=== PATIENT | female | born 1985 | race Caucasian/White ===

== ENCOUNTER 2018-10-12 05:59 | Emergency (ER) | payer BC, OTHER ==
--- NOTE | 2018-10-12 06:48 | EDM.PDOC ---
ED HPI GENERAL MEDICAL PROBLEM - General Chief Complaint: Skin Complaint Stated Complaint: STAPH INFECTION Time Seen by Provider: 10/12/18 06:41 - History of Present Illness INITIAL COMMENTS - FREE TEXT/NARRATIVE: HISTORY AND PHYSICAL: History of present illness: Patient is a 33-year-old white female who presents with concern of vomiting diarrhea possible staph infection of her face she states him the symptoms off- and-on for the last week or so. She is concerned of possible dehydration no reported fever chills chest pain or shortness of breath Review of systems: As per history of present illness and below otherwise all systems reviewed and negative. Past medical history: As per history of present illness and as reviewed below otherwise noncontributory. Surgical history: As per history of present illness and as reviewed below otherwise noncontributory. Social history: No reported history of drug or alcohol abuse. Family history: As per history of present illness and as reviewed below otherwise noncontributory. Physical exam: HEENT: Patient is a small area of excoriation of her right face with small swelling noted there is no significant erythema, normocephalic, pupils reactive , negative for conjunctival pallor or scleral icterus, mucous membranes moist, throat clear, neck supple, nontender, trachea midline. Lungs: Clear to auscultation, breath sounds equal bilaterally, chest nontender. Heart: S1S2, regular, negative for clicks, rubs, or JVD. Abdomen: Soft, nondistended, nontender. Negative for masses or hepatosplenomegaly. Negative for costovertebral tenderness. Pelvis: Stable nontender. Genitourinary: Deferred. Rectal: Deferred. Extremities: Atraumatic, negative for cords or calf pain. Neurovascular unremarkable. Neuro: Awake, alert, oriented. Cranial nerves II through XII unremarkable. Cerebellum unremarkable. Motor and sensory unremarkable throughout. Exam nonfocal. Diagnostics: CBC CMP UA UCG influenza screen Therapeutics: None Impression: #1 gastroenteritis #2 rule out impetigo Definitive disposition and diagnosis as appropriate pending reevaluation and review of above. Headache Pain Score (Numeric/FACES): 3 - Related Data Allergies Allergy/AdvReac Type Severity Reaction Status Date / Time No Known Allergies Allergy Verified 10/12/18 06:18 Home Meds: Home Meds Melatonin 5 mg PO BEDTIME 10/12/18 [History] hydrOXYzine HCl [hydrOXYzine] 25 mg PO ASDIRECTED 10/12/18 [History] lamoTRIgine [Lamotrigine] 150 mg PO BID 10/12/18 [History] Past Medical History Respiratory History: Reports: Asthma Other Respiratory History: sports induced asthma Musculoskeletal History: Reports: Fracture Other Musculoskeletal History: L wrist fx, R pinnky fx Neurological History: Reports: Headaches, Chronic, Migraines Psychiatric History: Reports: Anxiety Dermatologic History: Reports: Other (See Below) Other Dermatologic History: staph infection - Infectious Disease History Infectious Disease History: Reports: Chicken Pox, Human Papilloma Virus (HPV), Mononucleosis - Past Surgical History HEENT Surgical History: Reports: Oral Surgery GI Surgical History: Reports: Cholecystectomy Social & Family History - Tobacco Use Smoking Status *Q: Never Smoker - Recreational Drug Use Recreational Drug Use: Yes Recreational Drug Type: Reports: Marijuana/Hashish Recreational Drug Use Frequency: Not Used In Over 1 Month ED ROS GENERAL - Review of Systems Review Of Systems: ROS reveals no pertinent complaints other than HPI. ED EXAM, SKIN/RASH Exam: See Below (See dictation) Course - Vital Signs Last Recorded V/S: Last Vital Signs Temp 36.4 C 10/12/18 06:13 Pulse 94 10/12/18 06:13 Resp 16 10/12/18 06:13 BP 156/108 H 10/12/18 06:13 Pulse Ox 98 10/12/18 06:13 - Orders/Labs/Meds Orders: Active Orders 24 hr Category Date Time Status CBC WITH AUTO DIFF [HEME] Stat Lab 10/12/18 06:44 Ordered COMPREHENSIVE METABOLIC PN,CMP [CHEM] Stat Lab 10/12/18 06:44 Ordered CULTURE URINE [RM] Stat Lab 10/12/18 06:44 Ordered INFLUENZA A+B AG SCREEN [RM] Stat Lab 10/12/18 06:45 Ordered LIPASE [CHEM] Stat Lab 10/12/18 06:44 Ordered UA RFX ELEAZAR AND CULT IF INDIC [URIN] Stat Lab 10/12/18 06:44 Ordered UA W/MICROSCOPIC [URIN] Stat Lab 10/12/18 06:44 Ordered Departure - Departure Time of Disposition: 06:47 Disposition: Home, Self-Care 01 Condition: Good Clinical Impression: Encounter for medical screening examination, Gastroenteritis, Impetigo - Discharge Information Referrals: PCP,None [Primary Care Provider] - Additional Instructions: The following information is given to patients seen in the emergency department who are being discharged to home. This information is to outline your options for follow-up care. We provide all patients seen in our emergency department with a follow-up referral. The need for follow-up, as well as the timing and circumstances, are variable depending upon the specifics of your emergency department visit. If you don't have a primary care physician on staff, we will provide you with a referral. We always advise you to contact your personal physician following an emergency department visit to inform them of the circumstance of the visit and for follow-up with them and/or the need for any referrals to a consulting specialist. The emergency department will also refer you to a specialist when appropriate. This referral assures that you have the opportunity for followup care with a specialist. All of these measure are taken in an effort to provide you with optimal care, which includes your followup. Under all circumstances we always encourage you to contact your private physician who remains a resource for coordinating your care. When calling for followup care, please make the office aware that this follow-up is from your recent emergency room visit. If for any reason you are refused follow-up, please contact the [facility] emergency department at and asked to speak to the emergency department charge nurse. [facility] [address] [place] [id number] Bactroban Bactrim as prescribed push fluids follow-up clinic above called schedule routine appointment return as needed as discussed - My Orders Last 24 Hours: My Active Orders 10/12/18 06:44 CBC WITH AUTO DIFF [HEME] Stat COMPREHENSIVE METABOLIC PN,CMP [CHEM] Stat CULTURE URINE [RM] Stat LIPASE [CHEM] Stat UA RFX ELEAZAR AND CULT IF INDIC [URIN] Stat UA W/MICROSCOPIC [URIN] Stat 10/12/18 06:45 INFLUENZA A+B AG SCREEN [RM] Stat - Assessment/Plan Last 24 Hours: My Active Orders 10/12/18 06:44 CBC WITH AUTO DIFF [HEME] Stat COMPREHENSIVE METABOLIC PN,CMP [CHEM] Stat CULTURE URINE [RM] Stat LIPASE [CHEM] Stat UA RFX ELEAZAR AND CULT IF INDIC [URIN] Stat UA W/MICROSCOPIC [URIN] Stat 10/12/18 06:45 INFLUENZA A+B AG SCREEN [] Stat
== END 2018-10-12 07:53 | disposition home or self-care (01) ==
LOC: MW.ED 05:59
DX: K52.9 Noninfective gastroenteritis and colitis, unspecified (principal); L01.00 Impetigo, unspecified
CPT/HCPCS: 36415; 80053; 81001; 81003; 83690; 85025; 87086; 87804; 99283

== ENCOUNTER 2020-02-10 14:18 | Inpatient (IN) | payer BC ==
[2020-02-10] MEDS ORDERED: Sodium Chloride 0.9% 10 ML Syringe FLUSH PRN (16:13)
[2020-02-10] MEDS ORDERED: Sodium Chloride 0.9% 10 ML SDV IV PRN (16:13)
[2020-02-10] MEDS ORDERED: Nalbuphine 10 MG/1 ML Vial IVPUSH PRN (16:13)
[2020-02-10] MEDS ORDERED: Carboprost Tromethamine 250 MCG/1 ML Amp IM PRN (16:13)
[2020-02-10] MEDS ORDERED: Water For Irrigation,Sterile 1,000 ML Container IRR PRN (16:13)
[2020-02-10] MEDS ORDERED: Butorphanol 1 MG/ML SDV IVPUSH PRN (16:13)
[2020-02-10] MEDS ORDERED: Sodium Chloride 0.9% 2.5 ML Syringe FLUSH PRN (16:13)
[2020-02-10] MEDS ORDERED: Lidocaine 1% 50 ML MDV INJECT PRN (16:13)
[2020-02-10] MEDS ORDERED: Methylergonovine 0.2 MG/1 ML Amp IM PRN (16:13)
[2020-02-10] MEDS ORDERED: Terbutaline 1 MG/ML SDV SUBCUT PRN (16:13)
[2020-02-10] MEDS ORDERED: Misoprostol 25 MCG (1/4 of 100 MCG) Tab VAG PRN ×2 (16:13)
[2020-02-10] MEDS ORDERED: Misoprostol 200 MCG Tab PO PRN (16:13)
[2020-02-10] MEDS ORDERED: Tranexamic Acid 1,000 MG in Sodium Chloride 0.9% 100 ML IV PRN (16:13)
[2020-02-10] MEDS ORDERED: Oxytocin/0.9 % Sodium Chloride 30 UNIT/500 ML BAG IV SCH ×2 (16:15)
[2020-02-10] MEDS ORDERED: Ondansetron 4 MG/2 ML SDV IVPUSH PRN (16:26)
[2020-02-10] MEDS: Lactated Ringers 1,000 ML IV SCH (22:15)
[2020-02-10] MEDS ORDERED: fentaNYL/Ropivacaine/Ns/PF 100 ML Bag ONE (22:30)
--- NOTE | 2020-02-10 23:27 | PCM.PREANE ---
Preanesthetic Assessment - Anesthesia/Transfusion/Family Hx Anesthesia History: Prior Anesthesia Without Reaction Family History of Anesthesia Reaction: No Transfusion History: No Prior Transfusion(s) - Review of Systems General: No Symptoms Pulmonary: No Symptoms Cardiovascular: No Symptoms Gastrointestinal: No Symptoms Neurological: No Symptoms Other: Reports: None ( 40 3/7 weeks induction for post dates and failed NST , dilated to 2cm ) - Physical Assessment Height: 5 ft 7 in Weight: 69.4 kg ASA Class: 2 Mental Status: Alert & Oriented x3 Airway Class: Mallampati = 1 Dentition: Reports: Normal Dentition Thyro-Mental Finger Breadths: 3 ROM/Head Extension: Full Lungs: Clear to Auscultation, Normal Respiratory Effort Cardiovascular: Regular Rate, Regular Rhythm - Lab Values: Laboratory Last Values WBC 7.22 K/uL (4.0-11.0) 02/10/20 17:03 RBC 3.99 M/uL (4.30-5.90) L 02/10/20 17:03 Hgb 13.8 g/dL (12.0-16.0) 02/10/20 17:03 Hct 39.5 % (36.0-46.0) 02/10/20 17:03 MCV 99.0 fL (80.0-98.0) H 02/10/20 17:03 MCH 34.6 pg (27.0-32.0) H 02/10/20 17:03 MCHC 34.9 g/dL (31.0-37.0) 02/10/20 17:03 RDW Std Deviation 48.9 fl (28.0-62.0) 02/10/20 17:03 RDW Coeff of Maggie 14 % (11.0-15.0) 02/10/20 17:03 Plt Count 148 K/uL (150-400) L 02/10/20 17:03 MPV 10.00 fL (7.40-12.00) 02/10/20 17:03 Nucleated RBC % 0.0 /100WBC 02/10/20 17:03 Nucleated RBCs # 0 K/uL 02/10/20 17:03 Blood Type A POSITIVE 02/10/20 17:03 Antibody Screen NEGATIVE 02/10/20 17:03 - Allergies Allergies/Adverse Reactions: Allergies Allergy/AdvReac Type Severity Reaction Status Date / Time No Known Allergies Allergy Verified 02/10/20 14:24 - Acknowledgements Anesthesia Type Planned: Epidural Pt an Appropriate Candidate for the Planned Anesthesia: Yes Alternatives and Risks of Anesthesia Discussed w Pt/Guardian: Yes Pt/Guardian Understands and Agrees with Anesthesia Plan: Yes PreAnesthesia Questionnaire Respiratory History: Reports: Asthma Other Respiratory History: sports induced asthma [employer]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: Musculoskeletal History: Reports: Fracture Other Musculoskeletal History: L wrist fx, R pinnky fx Neurological History: Reports: Headaches, Chronic, Migraines Psychiatric History: Reports: Anxiety Dermatologic History: Reports: Other (See Below) Other Dermatologic History: staph infection - Infectious Disease History Infectious Disease History: Reports: Chicken Pox, Human Papilloma Virus (HPV), Mononucleosis - Past Surgical History HEENT Surgical History: Reports: Oral Surgery GI Surgical History: Reports: Cholecystectomy - SUBSTANCE USE Smoking Status *Q: Never Smoker Second Hand Smoke Exposure: Yes Recreational Drug Use History: No - HOME MEDS Home Medications: Home Meds Melatonin 5 mg PO BEDTIME 10/12/18 [History] hydrOXYzine HCL [hydrOXYzine] 25 mg PO ASDIRECTED 10/12/18 [History] lamoTRIgine [Lamotrigine] 150 mg PO BID 10/12/18 [History] - CURRENT (IN HOUSE) MEDS Current Meds: Current Medications Butorphanol Tartrate (Stadol) 1 mg IVPUSH Q1H PRN PRN Reason: Pain Last Admin: 02/10/20 22:36 Dose: 1 mg Carboprost Tromethamine (Hemabate Ds) 250 mcg IM ASDIRECTED PRN PRN Reason: Post Hemorrhage Tranexamic Acid 1,000 mg/ (Sodium Chloride) 110 mls @ 660 mls/hr IV ONETIME PRN PRN Reason: Bleeding Lactated Ringer's (Ringers, Lactated) 1,000 mls @ 150 mls/hr IV ASDIRECTED JAYA Last Admin: 02/10/20 22:15 Dose: 999 mls/hr Oxytocin/Sodium Chloride (Oxytocin 30 Unit/500 Ml-Ns) 30 unit in 500 mls @ 500 mls/hr IV TITRATE JAYA Oxytocin/Sodium Chloride (Oxytocin 30 Unit/500 Ml-Ns) 30 unit in 500 mls @ 2 mls/hr IV TITRATE JAYA; Protocol Lidocaine HCl (Xylocaine 1%) 50 ml INJECT ONETIME PRN PRN Reason: Laceration repair Methylergonovine Maleate (Methergine) 0.2 mg IM ASDIRECTED PRN PRN Reason: Post Hemorrhage Misoprostol (Cytotec) 200 mcg PO ONETIME PRN PRN Reason: Post Hemorrhage Misoprostol (Cytotec) 25 mcg VAG ONETIME PRN PRN Reason: Cervical Ripening Misoprostol (Cytotec) 25 mcg VAG Q4H PRN PRN Reason: Cervical Ripening Last Admin: 02/10/20 17:19 Dose: 25 mcg Nalbuphine HCl (Nubain) 10 mg IVPUSH Q1H PRN PRN Reason: Pain (severe 7-10) Ondansetron HCl (Zofran) 4 mg IVPUSH Q4H PRN PRN Reason: Nausea/Vomiting Sodium Chloride (Saline Flush) 10 ml FLUSH ASDIRECTED PRN PRN Reason: Keep Vein Open Sodium Chloride (Saline Flush) 2.5 ml FLUSH ASDIRECTED PRN PRN Reason: Keep Vein Open Sodium Chloride (Normal Saline) 10 ml IV ASDIRECTED PRN PRN Reason: IV Use Sterile Water (Sterile Water For Irrigation) 1,000 ml IRR ASDIRECTED PRN PRN Reason: delivery Terbutaline Sulfate (Brethine) 0.25 mg SUBCUT ASDIRECTED PRN PRN Reason: Tacysystole
[2020-02-11] MEDS ORDERED: Bupivacaine 0.5% 10 ML SDV INJECT ONE (02:36)
[2020-02-11] MEDS ORDERED: Bupivacaine 0.5% 10 ML SDV ONE (02:41)
--- NOTE | 2020-02-11 02:53 | PCM.SN.2 ---
- Free Text/Narrative Note: Called to OB for left hip pain that isn't being covered well by epidural. 5 ml bolus of 0.5% bupivicaine given at 0252. Infusion increased to 12 ml per hour.
[2020-02-11] MEDS: Lactated Ringers 1,000 ML IV SCH (03:07)
[2020-02-11] MEDS ORDERED: Bupivacaine 0.25% 10 ML SDV ONE (05:30)
[2020-02-11] MEDS ORDERED: Bupivacaine 0.5% 30 ML SDV ONE (05:30)
[2020-02-11] MEDS ORDERED: fentaNYL 100 MCG/2 ML SDV ONE ×2 (05:44→06:01)
[2020-02-11] MEDS ORDERED: ePHEDrine 50 MG/ML SDV ONE (06:26)
[2020-02-11] MEDS ORDERED: Sodium Chloride 0.9% 0 ML ONE (06:26)
[2020-02-11] MEDS ORDERED: Docusate Sodium 100 MG Cap PO PRN (06:50)
[2020-02-11] MEDS ORDERED: Acetaminophen 500 MG Tab PO PRN (06:50)
[2020-02-11] MEDS ORDERED: Witch Hazel Medicated Pads 40/Jar TOP PRN (06:50)
[2020-02-11] MEDS ORDERED: Ibuprofen 400 MG Tab PO PRN (06:50)
[2020-02-11] MEDS ORDERED: Bisacodyl 10 MG Supp RECTAL PRN (06:50)
[2020-02-11] MEDS ORDERED: Benzocaine/Menthol 20%-0.5% Spray 78 GM Cannister TOP PRN (06:50)
[2020-02-11] MEDS ORDERED: Lanolin 100% Cream 7 GM Tube TOP PRN (06:50)
--- NOTE | 2020-02-11 06:52 | PCM.SN.2 ---
- Free Text/Narrative Note: Called for epidural bag that is empty. Patient is complete and pushing. Infusion discontinued. Bolus of 5 ml 0.5% bupivicaine and 100 mcg Fentanyl given.
[2020-02-11] MEDS: Ibuprofen 800 MG Tab PO PRN (10:44)
--- NOTE | 2020-02-11 15:46 | OR ---
SURGEON: Jabari Mendez MD DATE OF PROCEDURE: 02/11/2020 INDICATION FOR PROCEDURE: A 34-year-old, G1, P0, at 40 weeks and 4 days, found in the clinic to have variable decelerations on NST. She had a BPP of 8/10, was admitted for induction of labor. She had otherwise uncomplicated and was GBS negative. She received one dose of Cytotec for induction of labor and progressed to regular contractions. Had spontaneous rupture of membranes with clear fluid. She had intermittent variable decelerations that would recover spontaneously. She received an epidural for anesthesia and became fully dilated and began pushing with contractions. PREOPERATIVE DIAGNOSIS: Oro intrauterine at 40 weeks and 4 days. POSTOPERATIVE DIAGNOSIS: Oro intrauterine at 40 weeks and 4 days. PROCEDURE PERFORMED: Normal spontaneous vaginal delivery, repair of first-degree perineal laceration. ANESTHESIA: Epidural. ANESTHESIOLOGIST: Dr. Vicki Portillo. FINDINGS: Viable male infant. scores are 8 and 9. weight is 3450g. ESTIMATED BLOOD LOSS: 300 mL. DESCRIPTION OF PROCEDURE: The patient pushed for approximately 30 minutes. The head did not descend from +2 station. Upon exam, the head was noted to be in ROT position. The head was manually turned to OA position. She then made good descent with the next few pushes and the head delivered in occiput anterior position over intact perineum, restituted ROT. Anterior shoulder delivered easily followed by posterior shoulder and remaining body. No nuchal cord was noted. The baby was placed on maternal chest and evaluated by nursery staff. The baby was pink, crying, and moving all extremities after delivery. The umbilical cord was clamped and cut after 60 seconds and no longer pulsating. The cord gases were obtained. The placenta was removed with gentle traction on the umbilical cord. It was examined and found to be intact with 3-vessel cord. The uterus was firm and at the umbilicus. The bleeding was light. The perineum was examined. She was noted to have a first-degree laceration and a right periurethral laceration. Both were repaired with 3-0 Vicryl in usual fashion. Hemostasis was confirmed. The patient tolerated the procedure well and was given care instructions. ALANA / RIKKI /[id number] KIMI
[2020-02-11] MEDS: Acetaminophen 500 MG Tab PO PRN (20:18)
[2020-02-12] MEDS: Ibuprofen 800 MG Tab PO PRN ×3 (00:52→19:43)
--- NOTE | 2020-02-12 09:35 | PCM.PNPP ---
- General Info Date of Service: 02/12/20 Functional Status: Reports: Pain Controlled, Tolerating Diet, Ambulating, Urinating - Review of Systems General: Reports: No Symptoms HEENT: Reports: No Symptoms Pulmonary: Reports: No Symptoms Cardiovascular: Reports: No Symptoms Gastrointestinal: Reports: No Symptoms Genitourinary: Reports: No Symptoms Musculoskeletal: Reports: No Symptoms Skin: Reports: No Symptoms Neurological: Reports: No Symptoms Psychiatric: Reports: No Symptoms - Patient Data Vital Signs - Most Recent: Last Vital Signs Temp 36.6 C 02/12/20 08:00 Pulse 73 02/12/20 08:00 Resp 16 02/12/20 08:00 BP 129/86 02/12/20 08:00 Pulse Ox 96 02/12/20 08:00 Weight - Most Recent: 153 lb Lab Results - Last 24 Hours: Laboratory Results - last 24 hr 02/12/20 Range/Units 05:53 Hgb 11.9 L (12.0-16.0) g/dL Hct 34.9 L (36.0-46.0) % Med Orders - Current: Current Medications Acetaminophen (Tylenol Extra Strength) 500 mg PO Q4H PRN PRN Reason: Pain Acetaminophen (Tylenol Extra Strength) 1,000 mg PO Q4H PRN PRN Reason: Pain Last Admin: 02/11/20 20:18 Dose: 1,000 mg Benzocaine/Menthol (Dermoplast Pain Relief 20%-0.5% [place]) 78 gm TOP ASDIRECTED PRN PRN Reason: Perineal Comfort Measure Last Admin: 02/11/20 10:43 Dose: 1 applic Bisacodyl (Dulcolax) 10 mg RECTAL ONETIME PRN PRN Reason: Constipation Butorphanol Tartrate (Stadol) 1 mg IVPUSH Q1H PRN PRN Reason: Pain Last Admin: 02/10/20 22:36 Dose: 1 mg Carboprost Tromethamine (Hemabate Ds) 250 mcg IM ASDIRECTED PRN PRN Reason: Post Hemorrhage Docusate Sodium (Colace) 100 mg PO BID PRN PRN Reason: Constipation Emollient Ointment (Lansinoh Hpa) 0 gm TOP ASDIRECTED PRN PRN Reason: Sore Nipples Tranexamic Acid 1,000 mg/ (Sodium Chloride) 110 mls @ 660 mls/hr IV ONETIME PRN PRN Reason: Bleeding Lactated Ringer's (Ringers, Lactated) 1,000 mls @ 150 mls/hr IV ASDIRECTED JAYA Last Admin: 02/11/20 03:07 Dose: 150 mls/hr Oxytocin/Sodium Chloride (Oxytocin 30 Unit/500 Ml-Ns) 30 unit in 500 mls @ 500 mls/hr IV TITRATE [facility] Oxytocin/Sodium Chloride (Oxytocin 30 Unit/500 Ml-Ns) 30 unit in 500 mls @ 2 mls/hr IV TITRATE [facility]; Protocol Ibuprofen (Motrin) 400 mg PO Q4H PRN PRN Reason: Pain Ibuprofen (Motrin) 800 mg PO Q6H PRN PRN Reason: Pain Last Admin: 02/12/20 00:52 Dose: 800 mg Lidocaine HCl (Xylocaine 1%) 50 ml INJECT ONETIME PRN PRN Reason: Laceration repair Methylergonovine Maleate (Methergine) 0.2 mg IM ASDIRECTED PRN PRN Reason: Post Hemorrhage Misoprostol (Cytotec) 200 mcg PO ONETIME PRN PRN Reason: Post Hemorrhage Misoprostol (Cytotec) 25 mcg VAG ONETIME PRN PRN Reason: Cervical Ripening Misoprostol (Cytotec) 25 mcg VAG Q4H PRN PRN Reason: Cervical Ripening Last Admin: 02/10/20 17:19 Dose: 25 mcg Nalbuphine HCl (Nubain) 10 mg IVPUSH Q1H PRN PRN Reason: Pain (severe 7-10) Ondansetron HCl (Zofran) 4 mg IVPUSH Q4H PRN PRN Reason: Nausea/Vomiting Last Admin: 02/11/20 03:08 Dose: 4 mg Sodium Chloride (Saline Flush) 10 ml FLUSH ASDIRECTED PRN PRN Reason: Keep Vein Open Sodium Chloride (Saline Flush) 2.5 ml FLUSH ASDIRECTED PRN PRN Reason: Keep Vein Open Sodium Chloride (Normal Saline) 10 ml IV ASDIRECTED PRN PRN Reason: IV Use Sterile Water (Sterile Water For Irrigation) 1,000 ml IRR ASDIRECTED PRN PRN Reason: delivery Terbutaline Sulfate (Brethine) 0.25 mg SUBCUT ASDIRECTED PRN PRN Reason: Tacysystole Witch Apurva (Tucks) 1 pad TOP ASDIRECTED PRN PRN Reason: comfort care Last Admin: 02/11/20 10:43 Dose: 1 applic Discontinued Medications Bupivacaine HCl (Sensorcaine-Mpf 0.5%) 10 ml INJECT ONETIME ONE Stop: 02/11/20 02:37 Bupivacaine HCl (Sensorcaine-Mpf 0.5%) Confirm Administered Dose 10 ml .ROUTE .STK-MED ONE Stop: 02/11/20 02:42 Bupivacaine HCl (Marcaine 0.5%) 60 ml .ROUTE .STK-MED ONE Stop: 02/11/20 05:31 Bupivacaine HCl (Sensorcaine-Mpf 0.25%) 20 ml .ROUTE .STK-MED ONE Stop: 02/11/20 05:31 Ephedrine Sulfate (Ephedrine Sulfate) Confirm Administered Dose 50 mg .ROUTE .STK-MED ONE Stop: 02/11/20 06:27 Fentanyl (Sublimaze) Confirm Administered Dose 100 mcg .ROUTE .STK-MED ONE Stop: 02/11/20 05:45 Fentanyl (Sublimaze) Confirm Administered Dose 100 mcg .ROUTE .STK-MED ONE Stop: 02/11/20 06:02 Sodium Chloride (Normal Saline) Confirm Administered Dose 20 mls @ as directed .ROUTE .STK-MED ONE Stop: 02/11/20 06:27 Ropivacaine/Fentanyl/NS (Fentanyl 2 Mcg-Ropiv 0.2%-Ns) 100 ml .ROUTE .STK-MED ONE Stop: 02/10/20 22:31 - Interaction Infant Disposition, : [place] at Bedside Interaction: Holding Feeding: Breastfed Infant; Nursed Well Support Person: Significant Other - Recovery Exam Fundal Tone: Firm Fundal Level: 1 Fingerbreadths Above Umbilicus Fundal Placement: Right Lochia Amount: Scant Lochia Color: Rubra/Red Perineum Description: Edematous Episiotomy/Laceration: Approximated Bladder Status: Voiding Urinary Elimination: Voided - Exam General: Alert, Oriented, Cooperative, No Acute Distress HEENT: Pupils Equal, Pupils Reactive, EOMI Neck: Supple, Trachea Midline, No JVD Lungs: Normal Respiratory Effort GI/Abdominal Exam: Soft, Non-Tender, No Distention Extremities: Normal Inspection, Normal Range of Motion, Non-Tender, No Pedal Edema Skin: Warm, Dry, Intact Wound/Incisions: Healing Well Neurological: No New Focal Deficit Psy/Mental Status: Alert, Normal Affect, Normal Mood - Problem List Review Problem List Initiated/Reviewed/Updated: Yes - My Orders Last 24 Hours: My Active Orders 02/11/20 Lunch Regular Diet [DIET] 02/12/20 09:14 Discharge Patient [ADT] Routine - Assessment Assessment:: 34yo PPD1 s/p , stable and recovering well. - Plan Plan:: Mildly elevated BP yesterday, wnl today. BP check in clinic in 1 week. Tolerating PO and ambulating Bleeding light, denies s/s of anemia. Hgb stable. Has small genital warts, sent aldara cream to use for 4-6weeks Stable for discharge home, given care instructions.
[2020-02-13] MEDS: Ibuprofen 800 MG Tab PO PRN ×2 (02:35→11:16)
[2020-02-13] MEDS: Acetaminophen 500 MG Tab PO PRN (06:21)
--- NOTE | 2020-02-13 11:11 | PCM.PNPP ---
- General Info Date of Service: 02/13/20 Functional Status: Reports: Pain Controlled, Tolerating Diet, Ambulating, Urinating - Review of Systems General: Reports: Fatigue. Denies: Fever, Weakness Pulmonary: Denies: Shortness of Breath Cardiovascular: Denies: Chest Pain, Palpitations, Lightheadedness Gastrointestinal: Denies: Abdominal Pain Genitourinary: Reports: No Symptoms Musculoskeletal: Reports: No Symptoms Skin: Reports: No Symptoms Neurological: Reports: Headache (mild, mostly tension related--very anxious) Psychiatric: Reports: No Symptoms - General Info Date of Service: 02/13/20 - Patient Data Vital Signs - Most Recent: Last Vital Signs Temp 36.3 C 02/13/20 10:37 Pulse 82 02/13/20 10:37 Resp 16 02/13/20 10:37 BP 118/83 02/13/20 10:37 Pulse Ox 95 02/13/20 10:37 Weight - Most Recent: 69.4 kg Med Orders - Current: Current Medications Acetaminophen (Tylenol Extra Strength) 500 mg PO Q4H PRN PRN Reason: Pain Acetaminophen (Tylenol Extra Strength) 1,000 mg PO Q4H PRN PRN Reason: Pain Last Admin: 02/13/20 06:21 Dose: 1,000 mg Benzocaine/Menthol (Dermoplast Pain Relief 20%-0.5% [place]) 78 gm TOP ASDIRECTED PRN PRN Reason: Perineal Comfort Measure Last Admin: 02/11/20 10:43 Dose: 1 applic Bisacodyl (Dulcolax) 10 mg RECTAL ONETIME PRN PRN Reason: Constipation Butorphanol Tartrate (Stadol) 1 mg IVPUSH Q1H PRN PRN Reason: Pain Last Admin: 02/10/20 22:36 Dose: 1 mg Carboprost Tromethamine (Hemabate Ds) 250 mcg IM ASDIRECTED PRN PRN Reason: Post Hemorrhage Docusate Sodium (Colace) 100 mg PO BID PRN PRN Reason: Constipation Emollient Ointment (Lansinoh Hpa) 0 gm TOP ASDIRECTED PRN PRN Reason: Sore Nipples Tranexamic Acid 1,000 mg/ (Sodium Chloride) 110 mls @ 660 mls/hr IV ONETIME PRN PRN Reason: Bleeding Lactated Ringer's (Ringers, Lactated) 1,000 mls @ 150 mls/hr IV ASDIRECTED JAYA Last Admin: 02/11/20 03:07 Dose: 150 mls/hr Oxytocin/Sodium Chloride (Oxytocin 30 Unit/500 Ml-Ns) 30 unit in 500 mls @ 500 mls/hr IV TITRATE JAYA Oxytocin/Sodium Chloride (Oxytocin 30 Unit/500 Ml-Ns) 30 unit in 500 mls @ 2 mls/hr IV TITRATE JAYA; Protocol Ibuprofen (Motrin) 400 mg PO Q4H PRN PRN Reason: Pain Ibuprofen (Motrin) 800 mg PO Q6H PRN PRN Reason: Pain Last Admin: 02/13/20 02:35 Dose: 800 mg Lidocaine HCl (Xylocaine 1%) 50 ml INJECT ONETIME PRN PRN Reason: Laceration repair Methylergonovine Maleate (Methergine) 0.2 mg IM ASDIRECTED PRN PRN Reason: Post Hemorrhage Misoprostol (Cytotec) 200 mcg PO ONETIME PRN PRN Reason: Post Hemorrhage Misoprostol (Cytotec) 25 mcg VAG ONETIME PRN PRN Reason: Cervical Ripening Misoprostol (Cytotec) 25 mcg VAG Q4H PRN PRN Reason: Cervical Ripening Last Admin: 02/10/20 17:19 Dose: 25 mcg Nalbuphine HCl (Nubain) 10 mg IVPUSH Q1H PRN PRN Reason: Pain (severe 7-10) Ondansetron HCl (Zofran) 4 mg IVPUSH Q4H PRN PRN Reason: Nausea/Vomiting Last Admin: 02/11/20 03:08 Dose: 4 mg Sodium Chloride (Saline Flush) 10 ml FLUSH ASDIRECTED PRN PRN Reason: Keep Vein Open Sodium Chloride (Saline Flush) 2.5 ml FLUSH ASDIRECTED PRN PRN Reason: Keep Vein Open Sodium Chloride (Normal Saline) 10 ml IV ASDIRECTED PRN PRN Reason: IV Use Sterile Water (Sterile Water For Irrigation) 1,000 ml IRR ASDIRECTED PRN PRN Reason: delivery Terbutaline Sulfate (Brethine) 0.25 mg SUBCUT ASDIRECTED PRN PRN Reason: Tacysystole Witch Apurva (Tucks) 1 pad TOP ASDIRECTED PRN PRN Reason: comfort care Last Admin: 02/11/20 10:43 Dose: 1 applic Discontinued Medications Bupivacaine HCl (Sensorcaine-Mpf 0.5%) 10 ml INJECT ONETIME ONE Stop: 02/11/20 02:37 Last Admin: 02/12/20 16:04 Dose: Not Given Bupivacaine HCl (Sensorcaine-Mpf 0.5%) Confirm Administered Dose 10 ml .ROUTE .STK-MED ONE Stop: 02/11/20 02:42 Last Admin: 02/12/20 16:04 Dose: Not Given Bupivacaine HCl (Marcaine 0.5%) 60 ml .ROUTE .STK-MED ONE Stop: 02/11/20 05:31 Bupivacaine HCl (Sensorcaine-Mpf 0.25%) 20 ml .ROUTE .STK-MED ONE Stop: 02/11/20 05:31 Ephedrine Sulfate (Ephedrine Sulfate) Confirm Administered Dose 50 mg .ROUTE .STK-MED ONE Stop: 02/11/20 06:27 Fentanyl (Sublimaze) Confirm Administered Dose 100 mcg .ROUTE .STK-MED ONE Stop: 02/11/20 05:45 Fentanyl (Sublimaze) Confirm Administered Dose 100 mcg .ROUTE .STK-MED ONE Stop: 02/11/20 06:02 Last Admin: 02/12/20 16:06 Dose: Not Given Sodium Chloride (Normal Saline) Confirm Administered Dose 20 mls @ as directed .ROUTE .STK-MED ONE Stop: 02/11/20 06:27 Ropivacaine/Fentanyl/NS (Fentanyl 2 Mcg-Ropiv 0.2%-Ns) 100 ml .ROUTE .STK-MED ONE Stop: 02/10/20 22:31 - Interaction Infant Disposition, : at Bedside Infant Interaction: Holding Infant Feeding: Breastfed ; Nursed Well Support Person: Significant Other - Recovery Exam Fundal Tone: Firm Fundal Level: 1 Fingerbreadths Below Umbilicus Fundal Placement: Midline Lochia Amount: Scant Lochia Color: Rubra/Red Perineum Description: Edematous Episiotomy/Laceration: Approximated Bladder Status: Voiding Urinary Elimination: Voided - Exam General: Alert, Oriented Lungs: Normal Respiratory Effort Cardiovascular: Regular Rate, Regular Rhythm GI/Abdominal Exam: Normal Bowel Sounds, Soft Extremities: Pedal Edema (trace). No: Tessie's Sign Skin: Warm, Dry, Intact Neurological: No New Focal Deficit Psy/Mental Status: Alert, Normal Affect, Anxious - Problem List & Annotations (1) Vaginal delivery SNOMED Code(s): 984929776 Code(s): O80 - ENCOUNTER FOR FULL-TERM UNCOMPLICATED DELIVERY Status: Acute Current Visit: Yes - Problem List Review Problem List Initiated/Reviewed/Updated: Yes - My Orders Last 24 Hours: My Active Orders 02/13/20 11:07 Ready for Discharge [RC] PER UNIT ROUTINE - Assessment Assessment:: 34yo PPD2 s/p - Plan Plan:: BP check in clinic in 1 week. Tolerating PO and ambulating Bleeding light, denies s/s of anemia. Hgb stable. Has small genital warts, sent aldara cream to use for 4-6weeks Stable for discharge home, given care instructions. Patient plans to connect with her mental health provider this week now that she has delivered. She struggles with her anxiety--but has a good relationship with her provider in [facility] and does telehealth visits. She has good support at home. Will check on her when comes in for her BP check this week
== END 2020-02-13 16:05 | disposition home or self-care (01) | DRG 560 ==
LOC: MW.OBCHECK 14:18 → MW.OB 14:19 → MW.OBCHECK 15:57 → MW.OB 15:58 → OBSVTOIN 02-11 06:15 → MW.OB 02-11 10:42
PROVIDERS: ADMIT Obstetrics & Gynecology; ATTEND Obstetrics & Gynecology
PROC: 10E0XZZ Delivery of Products of Conception, External Approach (ICD-10-PCS; principal; 2020-02-11)
PROC: 3E033VJ Introduction of Other Hormone into Peripheral Vein, Percutaneous Approach (ICD-10-PCS; 2020-02-11)
PROC: 0HQ9XZZ Repair Perineum Skin, External Approach (ICD-10-PCS; 2020-02-11)
PROC: 3E0R3BZ Introduction of Anesthetic Agent into Spinal Canal, Percutaneous Approach (ICD-10-PCS; 2020-02-11)
DX: O48.0 Post-term pregnancy (principal); Z3A.40 40 weeks gestation of pregnancy; Z37.0 Single live birth; O76 Abnormality in fetal heart rate and rhythm complicating labor and delivery; O70.0 First degree perineal laceration during delivery; O98.32 Other infections with a predominantly sexual mode of transmission complicating childbirth; A63.0 Anogenital (venereal) warts
CPT/HCPCS: 01967; 36415; 51702; 59025; 59409; 85014; 85018; 85027; 86592; 86593; 86850; 86900; 86901; A9270-GY; J0595; J2405; J3010; J3490; J7120